=== PATIENT | male | born 1955 | race Caucasian/White ===

== ENCOUNTER 2018-04-09 09:17 | Emergency (ER) | payer SELFPAY ==
[~2018-04-09] VITALS: Ht 180.3 cm; Wt 138.0 kg
[2018-04-09] MEDS ORDERED: THIAMINE 100MG TABLET ONE (09:53)
[2018-04-09] MEDS ORDERED: THIAMINE 100MG TABLET PO ONE (10:00)
[2018-04-09 11:13] VITALS: BP 149/86
[2018-04-09] MEDS ORDERED: CHLORDIAZEPOXIDE 25 MG CAPSULE ONE (11:22)
[2018-04-09] MEDS ORDERED: CHLORDIAZEPOXIDE 25 MG CAPSULE PO ONE (11:30)
[2018-04-09] MEDS ORDERED: LORazepam 1MG TABLET ONE (11:51)
[2018-04-09] MEDS ORDERED: LORazepam 1MG TABLET PO ONE (12:00)
== END 2018-04-09 12:06 | disposition home or self-care (01) ==
LOC: ED 11:47
DX: F10.220 Alcohol dependence with intoxication, uncomplicated (principal)
CPT/HCPCS: 99284

== ENCOUNTER 2018-04-12 13:44 | Observation (INO) | payer OTHER ==
[~2018-04-12] VITALS: Ht 182.9 cm; Wt 130.0 kg
[2018-04-12 14:07] LABS: BASOPHILS # (AUTO) 0.07 x10^3/uL (0-0.1); BASOPHILS % (AUTO) 1 % (0-1); EOSINOPHILS # (AUTO) 0.16 x10^3/uL (0-0.4); EOSINOPHILS % (AUTO) 2 % (1-7); LYMPHOCYTES # (AUTO) 3.42 x10^3/uL (1-3.4); LYMPHOCYTES % (AUTO) 45 % (22-44); MD NO; MEAN CORPUSCULAR HEMOGLOBIN 31.4 pg (27.5-34.5); MEAN CORPUSCULAR HGB CONC 34.7 g/dL (33.2-36.2); MEAN CORPUSCULAR VOLUME 90.3 fL (81-97); MONOCYTES # (AUTO) 0.55 x10^3/uL (0.2-0.8); MONOCYTES % (AUTO) 7 % (2-9); NEUTROPHILS # (AUTO) 3.34 x10^3/uL (1.8-6.8); NEUTROPHILS % (AUTO) 44 % (42-75); PLATELET COUNT 228 x10^3/uL (130-400); RED BLOOD COUNT 5.21 x10^6/uL (4.38-5.82); RED CELL DISTRIBUTION WIDTH 14.3 % (9.4-14.8)
[2018-04-12 14:15] LABS: ALANINE AMINOTRANSFERASE 45 U/L (12-78); ALBUMIN 3.6 g/dL (3.4-5.0); ANION GAP 12 mmol/L (5-15); CALCIUM 8.2 mg/dL (8.5-10.1); CHLORIDE 107 mmol/L (98-107); CREATININE 1.18 mg/dL (0.7-1.3)
[2018-04-12 14:17] LABS: ALKALINE PHOSPHATASE 92 U/L (45-117); BILIRUBIN,TOTAL 0.8 mg/dL (0.2-1.0); SALICYLATE LEVEL < 1.7 mg/dL (2.8-20.0); TOTAL PROTEIN 7.4 g/dL (6.4-8.2)
[2018-04-12 14:18] LABS: ACETAMINOPHEN < 2 mcg/mL (10-30)
[2018-04-12 14:36] LABS: AMPHETAMINE SCREEN, URINE Negative (Negative); BARBITURATE SCREEN, URINE Negative (Negative); BENZODIAZEPINE SCREEN, URINE Positive (Negative); CANNABINOID SCREEN, URINE Negative (Negative); COCAINE SCREEN, URINE Negative (Negative); METHADONE SCREEN, URINE Negative (Negative); OPIATE SCREEN, URINE Negative (Negative)
[2018-04-12] MEDS ORDERED: CHLORDIAZEPOXIDE 25 MG CAPSULE ONE (14:48)
[2018-04-12] MEDS ORDERED: CHLORDIAZEPOXIDE 25 MG CAPSULE PO ONE (15:00)
[2018-04-12] MEDS ORDERED: LORazepam 2 MG/ML, 1ML IVPush ONE (19:00)
[2018-04-12] MEDS ORDERED: LORazepam 2 MG/ML, 1ML ONE (19:06)
[2018-04-12] MEDS ORDERED: MELO15TA24 PO (20:06)
[2018-04-12] MEDS ORDERED: BACL20TA PO (20:06)
[2018-04-12] MEDS ORDERED: BUPR150T13 PO (20:06)
[2018-04-12] MEDS ORDERED: CLON-275 PO (20:06)
[2018-04-12] MEDS ORDERED: LORA1TAB PO (20:06)
[2018-04-12] MEDS ORDERED: NALT50TA PO (20:06)
[2018-04-12] MEDS ORDERED: ONDANSETRON ODT 4 MG ONE (23:15)
[2018-04-13] MEDS ORDERED: DIPHENHYDRAMINE 50 MG CAPSULE PO PRN ×2 (00:30→03:30)
[2018-04-13] MEDS ORDERED: HALOPERIDOL 5 MG TABLET PO ONE (00:30)
[2018-04-13] MEDS ORDERED: HALOPERIDOL 5 MG TABLET ONE (00:53)
[2018-04-13] MEDS ORDERED: DIPHENHYDRAMINE 50 MG CAPSULE ONE (00:53)
[2018-04-13] MEDS ORDERED: ZIPRASIDONE 20 MG INJ IM ONE ×2 (03:24→03:30)
[2018-04-13] MEDS ORDERED: BENZTROPINE 1 MG TABLET PO PRN (03:30)
[2018-04-13] MEDS ORDERED: ONDANSETRON ODT 4 MG PO PRN (03:30)
[2018-04-13] MEDS ORDERED: ZIPRASIDONE 20 MG INJ IM PRN (03:30)
[2018-04-13] MEDS ORDERED: LORazepam 1MG TABLET ONE ×2 (07:18→13:32)
[2018-04-13] MEDS: LORazepam 1MG TABLET PO PRN ×4 (07:33→20:17)
[2018-04-13] MEDS ORDERED: ACETAMINOPHEN 325 MG TABLET PO PRN (08:00)
[2018-04-13] MEDS ORDERED: KETOROLAC 30 MG/1 ML ONE (08:02)
[2018-04-13] MEDS: KETOROLAC 30 MG/1 ML IM PRN ×3 (08:07→21:46)
[2018-04-13] MEDS: NALTREXONE HCL 50 MG TABLET PO SCH (10:47)
[2018-04-13] MEDS: BUPROPION SR 150 MG TABLET PO SCH (11:59)
[2018-04-13] MEDS: BACLOFEN 10 MG TABLET PO SCH ×3 (11:59→21:42)
[2018-04-13 20:00] VITALS: BP 174/99
[2018-04-13 21:33] VITALS: BP 162/77
[2018-04-13] MEDS: TEMAZEPAM 15 MG CAPSULE PO PRN (21:42)
[2018-04-14] MEDS: BUPROPION SR 150 MG TABLET PO SCH (08:31)
[2018-04-14] MEDS: NALTREXONE HCL 50 MG TABLET PO SCH (08:31)
[2018-04-14] MEDS: BACLOFEN 10 MG TABLET PO SCH ×3 (08:31→22:59)
[2018-04-14 09:01] VITALS: BP 164/81
[2018-04-14] MEDS: LORazepam 1MG TABLET PO PRN ×3 (09:43→20:01)
[2018-04-14] MEDS: KETOROLAC 30 MG/1 ML IM PRN ×3 (09:43→22:59)
[2018-04-14 20:00] VITALS: BP 147/76
[2018-04-14] MEDS: TEMAZEPAM 15 MG CAPSULE PO PRN (23:01)
[2018-04-15] MEDS: LORazepam 1MG TABLET PO PRN ×3 (02:20→17:09)
[2018-04-15 07:43] VITALS: BP 136/80
[2018-04-15] MEDS: BACLOFEN 10 MG TABLET PO SCH ×3 (08:34→21:20)
[2018-04-15] MEDS: KETOROLAC 30 MG/1 ML IM PRN ×3 (08:34→23:13)
[2018-04-15] MEDS: BUPROPION SR 150 MG TABLET PO SCH (08:34)
[2018-04-15] MEDS: NALTREXONE HCL 50 MG TABLET PO SCH (08:35)
[2018-04-15 19:26] VITALS: BP 137/84
[2018-04-16 08:44] VITALS: BP 157/77
[2018-04-16] MEDS: BUPROPION SR 150 MG TABLET PO SCH (08:49)
[2018-04-16] MEDS: NALTREXONE HCL 50 MG TABLET PO SCH (08:49)
[2018-04-16] MEDS: BACLOFEN 10 MG TABLET PO SCH ×3 (08:49→21:26)
[2018-04-16] MEDS: KETOROLAC 30 MG/1 ML IM PRN ×2 (09:09→17:20)
[2018-04-16] MEDS: LORazepam 1MG TABLET PO PRN ×2 (10:33→21:26)
[2018-04-16] MEDS: MINERA CRM, 60GM TP SCH ×2 (17:00→21:00)
[2018-04-16 21:33] VITALS: BP 153/90
[2018-04-17] MEDS: KETOROLAC 30 MG/1 ML IM PRN ×4 (00:43→21:01)
[2018-04-17 07:50] VITALS: BP 162/106
[2018-04-17] MEDS: MINERA CRM, 60GM TP SCH ×3 (08:46→21:00)
[2018-04-17] MEDS: BACLOFEN 10 MG TABLET PO SCH ×3 (08:46→21:00)
[2018-04-17] MEDS: NALTREXONE HCL 50 MG TABLET PO SCH (08:46)
[2018-04-17] MEDS: BUPROPION SR 150 MG TABLET PO SCH (08:46)
[2018-04-17] MEDS: LORazepam 1MG TABLET PO PRN ×4 (08:46→19:26)
[2018-04-17] MEDS: LIDOCAINE 4% CREAM 5GM TUBE TP PRN (18:03)
[2018-04-17 20:24] VITALS: BP 150/73
[2018-04-18 08:06] VITALS: BP 151/84
[2018-04-18] MEDS: LORazepam 1MG TABLET PO PRN ×2 (08:10→11:48)
[2018-04-18] MEDS: BUPROPION SR 150 MG TABLET PO SCH (08:10)
[2018-04-18] MEDS: BACLOFEN 10 MG TABLET PO SCH (08:10)
[2018-04-18] MEDS: LIDOCAINE 4% CREAM 5GM TUBE TP PRN (08:10)
[2018-04-18] MEDS: NALTREXONE HCL 50 MG TABLET PO SCH (08:10)
[2018-04-18] MEDS: MINERA CRM, 60GM TP SCH (08:12)
== END 2018-04-18 16:50 | disposition home or self-care (01) ==
LOC: ED 15:57 → EDIP 22:55 → 2N 04-13 14:05
PROVIDERS: ADMIT Internal Medicine; ATTEND Hospitalist
DX: R45.851 Suicidal ideations (principal); F10.229 Alcohol dependence with intoxication, unspecified; M48.061 Spinal stenosis, lumbar region without neurogenic claudication; F41.9 Anxiety disorder, unspecified; F32.9 Major depressive disorder, single episode, unspecified; G89.29 Other chronic pain
CPT/HCPCS: 36415; 71045; 80053; 80307; 80329; 85025; 93005; 96372; 96374; 99285; G0378; J1885; J2060; J3486; Q0162; G0480

== ENCOUNTER 2019-01-29 10:38 | Emergency (ER) | payer SELFPAY ==
[~2019-01-29] VITALS: Ht 172.7 cm; Wt 138.0 kg
[~2019-01-29 10:38] MED LIST: BACL20TA PO; BUPR150T13 PO; CLON-275 PO; LORA1TAB PO; MELO15TA24 PO; NALT50TA PO
--- NOTE | 2019-01-29 11:02 | NUR ---
PT. ARRIVES BY [facility] WITH C/O BEING [facility] AND MAKING STATEMENTS THAT HE "WANTS TO ." PT. STATES HE DOESN'T HAVE A PLAN OR PAST SI ATTEMPTS. PT. IS UNDRESSED AND HIS BELONGINGS SECURED IN THE CABINET. GARAGE DOORS ARE DOWN AND THERE IS A SITTER OUTSIDE OF THE ROOM. PT. IS NOT COOPERATING WITH MEDICAL STAFF AND ANSWERING QUESTIONS. PT. STATES, " I DON'T KNOW TO ALL QUESTIONS." PT. HAS STRONG ETOH ODOR. PT.'S HOB IS ELEVATED GREATER THAN 30 DEGREES. PT. WAS GIVEN A BLANKET FOR WARMTH AND THE SIDERAILS ARE UP X 2. PT.'S ROOM AIR SATS WERE 88%. PT. WAS PLACED ON 2 LITERS O2 PER NC WITH SATS AT 94% AND RESP EUPNEIC.
[2019-01-29] MEDS ORDERED: AMLO10TA8 PO (11:38)
[2019-01-29] MEDS ORDERED: ATOR20TA37 PO (11:38)
[2019-01-29] MEDS ORDERED: FOLI0.8T2 PO (11:38)
[2019-01-29] MEDS ORDERED: ESCI20TA PO (11:38)
[2019-01-29] MEDS ORDERED: THIA500T PO (11:38)
[2019-01-29] MEDS ORDERED: MULT-257 PO (11:38)
[2019-01-29] MEDS ORDERED: TAMS-11 PO (11:38)
[2019-01-29] MEDS ORDERED: OMEP40CA6 PO (11:38)
[2019-01-29] MEDS ORDERED: MELA1TAB6 PO (11:38)
[2019-01-29 12:14] LABS: BASOPHILS # (AUTO) 0.05 x10^3/uL (0-0.1); BASOPHILS % (AUTO) 1 % (0-1); EOSINOPHILS # (AUTO) 0.24 x10^3/uL (0-0.4); EOSINOPHILS % (AUTO) 4 % (1-7); LYMPHOCYTES # (AUTO) 2.76 x10^3/uL (1-3.4); LYMPHOCYTES % (AUTO) 42 % (22-44); MD NO; MEAN CORPUSCULAR HGB CONC 34.1 g/dL (33.2-36.2); MEAN CORPUSCULAR VOLUME 96.8 fL (81-97); MEAN PLATELET VOLUME 6.5 fL (7.4-10.4); MONOCYTES # (AUTO) 0.59 x10^3/uL (0.2-0.8); MONOCYTES % (AUTO) 9 % (2-9); NEUTROPHILS # (AUTO) 2.93 x10^3/uL (1.8-6.8); NEUTROPHILS % (AUTO) 45 % (42-75); PLATELET COUNT 244 x10^3/uL (130-400); RED BLOOD COUNT 4.85 x10^6/uL (4.38-5.82); RED CELL DISTRIBUTION WIDTH 14.2 % (9.4-14.8)
[2019-01-29 12:25] LABS: ALBUMIN 3.4 g/dL (3.4-5.0); ANION GAP 9 mmol/L (5-15); CALCIUM 8.1 mg/dL (8.5-10.1); CHLORIDE 106 mmol/L (98-107)
[2019-01-29 12:27] LABS: ALANINE AMINOTRANSFERASE 49 U/L (12-78); ALKALINE PHOSPHATASE 86 U/L (45-117); BILIRUBIN,TOTAL 0.5 mg/dL (0.2-1.0); CREATININE 0.99 mg/dL (0.7-1.3); TOTAL PROTEIN 7.3 g/dL (6.4-8.2)
[2019-01-29 12:35] LABS: ACETAMINOPHEN < 2 mcg/mL (10-30); SALICYLATE LEVEL < 1.7 mg/dL (2.8-20.0)
--- NOTE | 2019-01-29 13:19 | NUR ---
SITTER REMAINS OUTSIDE OF THE ROOM. PT. WAS AMBULATORY TO THE RESTROOM AND VOIDED ON THE FLOOR. NO FURTHER CONCERNS AT THIS TIME.
--- NOTE | 2019-01-29 15:08 | NUR ---
PT. PROVIDING A URINE SAMPLE THEN SAT HIMSELF ON THE GROUND. PT.'S URINE WAS SENT. PT. IS AMBULATORY IN THE JAMES AND STATING HE WANTS TO LEAVE SECURITY CALLED.
[2019-01-29] MEDS ORDERED: LORazepam 2 MG/ML, 1ML ONE (15:12)
[2019-01-29] MEDS: LORazepam 2 MG/ML, 1ML IM PRN (15:16)
--- NOTE | 2019-01-29 15:20 | NUR ---
PT. IS UNCOOPERATIVE STATING HE IS LEAVING. SECURITY IS AT THE BEDSIDE. PT. IS BELITTLING THE RN. PT. INSTRUCTED ON THE PLAN OF CARE. PT. WAS INSTRUCTED THAT IF HE POSES A DANGER TO HIMSELF, STAFF OR OTHER PATIENTS HE WILL BE RESTRAINED. PT. WAS INSTRUCTED TO NOT GET UP WITHOUT ASKING FOR ASSISTANCE. PT. CONTINUES TO BELITTLE THE RN AND DEFAME HER CHARACTER. PT. WAS MEDICATED ORDERED. SIDERAILS REMAIN UP X 2. SITTER OUTSIDE OF THE ROOM.
[2019-01-29 15:21] LABS: AMPHETAMINE SCREEN, URINE Negative (Negative); BARBITURATE SCREEN, URINE Negative (Negative); BENZODIAZEPINE SCREEN, URINE Positive (Negative); CANNABINOID SCREEN, URINE Negative (Negative); COCAINE SCREEN, URINE Negative (Negative); METHADONE SCREEN, URINE Negative (Negative); OPIATE SCREEN, URINE Negative (Negative)
--- NOTE | 2019-01-29 15:58 | NUR ---
PT. WAS MOVED TO ROOM 41. REPORT WAS GIVEN TO BORIS CASAS.
[2019-01-29] MEDS ORDERED: LORazepam 1MG TABLET PO ONE (16:00)
--- NOTE | 2019-01-29 16:22 | NUR ---
maria fernanda report from aggie. patient non cooperative and wants sedation. re breathylized patient and was high so told patient at this time sedation not good for him. he is angry about this. relayed to md. trying to keep patient in room, sitter outside.
[2019-01-29] MEDS ORDERED: LORazepam 1MG TABLET ONE ×2 (16:52→16:55)
--- NOTE | 2019-01-29 16:58 | NUR ---
patient requesting ativan frequently. ate dinner. he is not cooperative about getting or staying in bed. sitter. tv. will monitor. medicated as ordered.
--- NOTE | 2019-01-29 17:18 | NUR ---
patient resting quietly at this time
--- NOTE | 2019-01-29 19:25 | NUR ---
Pt states that if we let him go, he will "drink until I can't drink anymore. I don't know if that means i'm suicidal"
--- NOTE | 2019-01-29 21:08 | NUR ---
Pt sleeping at this time. Sitter outside room.
[2019-01-29] MEDS ORDERED: ACETAMINOPHEN 325 MG TABLET ONE (23:16)
[2019-01-29 23:25] VITALS: BP 177/80
--- NOTE | 2019-01-29 23:28 | NUR ---
Pt up to use BR. Requeted medication for pain and for detox. VSS. Pt medicated with tylenol.
[2019-01-29] MEDS ORDERED: ACETAMINOPHEN 325 MG TABLET PO ONE (23:30)
--- NOTE | 2019-01-30 00:52 | NUR ---
Report to tia cedeno
--- NOTE | 2019-01-30 00:53 | NUR ---
REPORT FROM ADINA CASAS. THIS RN TO ASSUME CARE OF PT. RESTING COMFORTABLY ON GURNEY WATCHING TV. REFUSES TO DO ANOTHER BREATHALYZER AT THIS TIME. ROLLER DOORS IN PLACE. SITTER IN HALLWAY.
--- NOTE | 2019-01-30 00:57 | NUR ---
PT STATES "IM FEELING A LITTLE ROUGH RIGHT NOW." STATES HE FEELS LIKE HE IS WITHDRAWING AND REQUESTING ATIVAN.
[2019-01-30] MEDS ORDERED: LORazepam 2 MG/ML, 1ML ONE (01:14)
[2019-01-30] MEDS: LORazepam 2 MG/ML, 1ML IM PRN (01:18)
--- NOTE | 2019-01-30 01:18 | NUR ---
GIVEN ATIVAN PER MAR AT THIS TIME.
[2019-01-30] MEDS ORDERED: LORazepam 1MG TABLET PO ONE (01:30)
--- NOTE | 2019-01-30 01:46 | NUR ---
PT PUKING AND D/T SYMPTOMS NOT SUBSIDING. MD AWARE AND THIS RN TO GIVE 2 MG PO ATIVAN.
[2019-01-30] MEDS ORDERED: LORazepam 1MG TABLET ONE (01:48)
--- NOTE | 2019-01-30 02:49 | NUR ---
PT. ASLEEP COMFORTABLY ON GURNEY. RR EVEN AND UNLABORED. NADN. ROLLER DOORS IN PLACE. SITTER IN HALLWAY.
--- NOTE | 2019-01-30 04:16 | NUR ---
PT ASLEEP COMFORTABLY ON GURNEY. RR EVEN AND UNLABORED. NADN. ROLLER DOORS IN PLACE. SITTER IN HALLWAY.
--- NOTE | 2019-01-30 04:47 | NUR ---
SOC CALLED FOR UPDATE. UDATED ON PT. TELEPSYCH TO BE INTIATED.
--- NOTE | 2019-01-30 05:21 | NUR ---
SOC COMPLETE. AWAITING FAXED RESULTS.
--- NOTE | 2019-01-30 05:42 | NUR ---
TELEPSYCH RECOMMENDS OUT PT TX AND NO CLINICAL INDICATION FOR L2K AT THIS TIME. AWARE. AWAITING FURTHER ORDERS.
--- NOTE | 2019-01-30 05:52 | NUR ---
PT TBDC. GIVEN ALL BELONGINGS BACK. AWAITING D/C INSTRUCTIONS.
== END 2019-01-30 06:00 | disposition home or self-care (01) ==
LOC: ED 13:16
DX: R45.851 Suicidal ideations (principal); F32.9 Major depressive disorder, single episode, unspecified; F10.220 Alcohol dependence with intoxication, uncomplicated
CPT/HCPCS: 36415; 80053; 80307; 80329; 85025; 96372; 99284; J2060; G0480

== ENCOUNTER 2021-04-19 07:53 | Inpatient (IN) | payer MEDICARE, OTHER ==
[~2021-04-19] VITALS: Ht 182.9 cm; Wt 146.0 kg
[~2021-04-19 07:53] MED LIST changes: +AMLO-211 PO; +ATOR20TA37 PO; +ESCI20TA8 PO; +FOLI0.8T5 PO; +MELA1TAB46 PO; +MULT-257 PO; +OMEP40CA8 PO; +TAMS-11 PO; +THIA500T PO
[2021-04-19] MEDS ORDERED: SODIUM CHLORIDE FLUSH 10ML SYR IVF ONE (08:30)
--- NOTE | 2021-04-19 08:35 | NUR ---
first contact with pt: Pt woke up this morning with L side pain and tingling. Hx of afib with pacer. C/o intermittent CP this AM. Nausea, SOB. A&Ox4. FSBG 146. EKG in triage. Pt postioned to comfort in bed. attached to monitors. vss. Thierry Calle to beside for evaluation.
[2021-04-19 08:59] LABS: BASOPHILS % (AUTO) 1 % (0-1); EOSINOPHILS % (AUTO) 2 % (1-7); LYMPHOCYTES % (AUTO) 20 % (22-44); MEAN CORPUSCULAR HGB CONC 35.2 g/dL (33.2-36.2); MEAN PLATELET VOLUME 6.9 fL (7.4-10.4); MONOCYTES % (AUTO) 10 % (2-9); NEUTROPHILS % (AUTO) 68 % (42-75); PLATELET COUNT 212 x10^3/uL (130-400); RED CELL DISTRIBUTION WIDTH 13.3 % (9.4-14.8)
[2021-04-19] MEDS ORDERED: ONDANSETRON 2MG/ML, 2ML IVPush ONE (09:00)
[2021-04-19] MEDS ORDERED: HYDROmorphone 1 MG/ML, 1ML INJ ONE (09:16)
[2021-04-19] MEDS ORDERED: ONDANSETRON 2MG/ML, 2ML ONE (09:16)
[2021-04-19 09:18] LABS: ALANINE AMINOTRANSFERASE 38 U/L (12-78); ALBUMIN 3.6 g/dL (3.4-5.0); ANION GAP 5 mmol/L (5-15); CALCIUM 9.3 mg/dL (8.5-10.1); CHLORIDE 103 mmol/L (98-107); CREATININE 1.15 mg/dL (0.7-1.3)
[2021-04-19 09:22] LABS: ALKALINE PHOSPHATASE 71 U/L (45-117); TROPONIN I < 0.015 ng/mL (0.000-0.045)
--- NOTE | 2021-04-19 09:23 | NUR ---
pt medicated per emar. vss. nadn
[2021-04-19] MEDS ORDERED: HYDROmorphone 1 MG/ML, 1ML INJ IV ONE (09:30)
--- NOTE | 2021-04-19 09:53 | NUR ---
pt back from ct. vss. haq.
--- NOTE | 2021-04-19 10:32 | NUR ---
PT RESTING IN BED. VSParesh. MAEGAN.
[2021-04-19] MEDS ORDERED: HYDROcodone/APAP 10/325 MG TABLET PO ONE (11:00)
[2021-04-19] MEDS ORDERED: HYDROcodone/APAP 10/325 MG TABLET ONE (11:15)
--- NOTE | 2021-04-19 11:18 | NUR ---
pt medicated per emar. vss.
[2021-04-19] MEDS ORDERED: OMNIPAQUE 350 MG/ML, 150 ML BOTTLE ONE (11:46)
[2021-04-19] MEDS ORDERED: CALC-43 PO (13:10)
[2021-04-19] MEDS ORDERED: ROSU20TA2 PO (13:10)
[2021-04-19] MEDS ORDERED: LOSA1TAB22 PO (13:10)
[2021-04-19] MEDS ORDERED: HYDR-3248 PO (13:10)
[2021-04-19] MEDS ORDERED: RIVA10TA2 PO (13:10)
--- NOTE | 2021-04-19 13:41 | NUR ---
REPORT CALLED TO DEANNA CASAS. PT TRANSFERED
[2021-04-19 14:00] VITALS: BP 131/76
[2021-04-19] MEDS ORDERED: BISACODYL 10 MG SUPP PR PRN (15:30)
[2021-04-19] MEDS ORDERED: DOCUSATE 100 MG CAPSULE PO PRN (15:30)
[2021-04-19] MEDS ORDERED: POLYETHYLENE GLYCOL 17 GM PACKET PO PRN (15:30)
[2021-04-19] MEDS ORDERED: HYDROcodone/APAP 5/325 TABLET PO PRN (15:30)
[2021-04-19] MEDS ORDERED: ONDANSETRON 2MG/ML, 2ML IVPush PRN (15:30)
[2021-04-19] MEDS ORDERED: ACETAMINOPHEN 325 MG TABLET PO PRN (15:30)
[2021-04-19 15:55] LABS: TROPONIN I < 0.015 ng/mL (0.000-0.045)
[2021-04-19 16:01] LABS: INTERNATIONAL NORMALIZED RATIO 1.27 (0.93-1.1); PROTHROMBIN TIME 13.4 Seconds (9.6-11.5)
[2021-04-19] MEDS: morphine SULFATE 10 MG/ML, 1ML IVPush PRN ×2 (18:55→23:25)
[2021-04-19 19:15] VITALS: BP 130/69
[2021-04-19] MEDS ORDERED: ATORVASTATIN 20 MG TABLET PO SCH (21:00)
[2021-04-19 21:28] LABS: TROPONIN I < 0.015 ng/mL (0.000-0.045)
[2021-04-20 01:45] VITALS: BP 126/67
[2021-04-20] MEDS: morphine SULFATE 10 MG/ML, 1ML IVPush PRN ×2 (04:06→10:36)
[2021-04-20 05:25] LABS: ALBUMIN 3.1 g/dL (3.4-5.0); ANION GAP 6 mmol/L (5-15); CALCIUM 8.5 mg/dL (8.5-10.1); CHLORIDE 102 mmol/L (98-107)
[2021-04-20 05:33] LABS: ALANINE AMINOTRANSFERASE 34 U/L (12-78); ALKALINE PHOSPHATASE 69 U/L (45-117); CHOL/HDL RATIO 3.6; CHOLESTEROL, TOTAL 170 mg/dL (140-239); CREATININE 1.05 mg/dL (0.7-1.3); HDL CHOL % 28 % (26-37); HDL CHOLESTEROL (DIRECT) 47 mg/dL (40-60); LDL CHOLESTEROL,CALCULATED 101 mg/dL (54-169); LDL/HDL RATIO 2.1 (0.5-3.0); TOTAL PROTEIN 7.1 g/dL (6.4-8.2); TRIGLYCERIDES 111 mg/dL (50-200); VLDL CHOLESTEROL 22 mg/dL (0-25)
[2021-04-20 05:34] LABS: BASOPHILS % (AUTO) 1 % (0-1); EOSINOPHILS % (AUTO) 4 % (1-7); LYMPHOCYTES % (AUTO) 36 % (22-44); MEAN CORPUSCULAR HEMOGLOBIN 35.2 pg (27.5-34.5); MEAN CORPUSCULAR HGB CONC 35.5 g/dL (33.2-36.2); MONOCYTES % (AUTO) 11 % (2-9); NEUTROPHILS % (AUTO) 49 % (42-75); PLATELET COUNT 170 x10^3/uL (130-400); RED BLOOD COUNT 4.47 x10^6/uL (4.38-5.82); RED CELL DISTRIBUTION WIDTH 13.1 % (9.4-14.8)
[2021-04-20 06:40] VITALS: BP 134/70
[2021-04-20] MEDS ORDERED: RIVAROXABAN 10 MG TABLET PO SCH (09:00)
== END 2021-04-20 14:04 | disposition home or self-care (01) | DRG 69 ==
LOC: ED 11:52 → EDIP 12:12 → 5SO 13:15
PROVIDERS: ADMIT Hospitalist; ATTEND Internal Medicine
DX: G45.9 Transient cerebral ischemic attack, unspecified (principal); E87.1 Hypo-osmolality and hyponatremia; Z68.41 Body mass index [BMI] 40.0-44.9, adult; R07.89 Other chest pain; E78.5 Hyperlipidemia, unspecified; E86.0 Dehydration; F32.9 Major depressive disorder, single episode, unspecified; G89.4 Chronic pain syndrome; I10 Essential (primary) hypertension; I48.91 Unspecified atrial fibrillation; K21.9 Gastro-esophageal reflux disease without esophagitis; N40.0 Benign prostatic hyperplasia without lower urinary tract symptoms; E66.9 Obesity, unspecified; Z79.899 Other long term (current) drug therapy; Z79.01 Long term (current) use of anticoagulants; Z86.718 Personal history of other venous thrombosis and embolism; Z95.0 Presence of cardiac pacemaker; I49.5 Sick sinus syndrome; R59.0 Localized enlarged lymph nodes; I49.9 Cardiac arrhythmia, unspecified
CPT/HCPCS: 36415; 70450; 70551; 71045; 71275; 74174; 80053; 80061; 80320; 82962; 83735; 84100; 84443; 84484; 85025; 85610; 93005; 96374; 96375; G0378; J1170; J2405; Q9967; G0480; J2270

== ENCOUNTER 2021-05-10 13:00 | Emergency (ER) | payer MEDICARE ==
[~2021-05-10] VITALS: Ht 182.9 cm; Wt 141.0 kg
[~2021-05-10 13:00] MED LIST changes: +CALC-43 PO; +HYDR-3248 PO; +LOSA1TAB22 PO; +RIVA10TA2 PO; +ROSU20TA2 PO
--- NOTE | 2021-05-10 13:38 | NUR ---
TASK RN: PT BIBA FROM FOR HYPOXIA 88% RA, AND NEW NEW LOSS OF TASTE AND SMELL X5 DAYS.
[2021-05-10] MEDS ORDERED: SODIUM CHLORIDE FLUSH 10ML SYR IVF ONE (14:00)
[2021-05-10] MEDS ORDERED: PLEASE ENTER HEIGHT AND WEIGHT MC SCH (14:00)
[2021-05-10 14:22] LABS: ALANINE AMINOTRANSFERASE 41 U/L (12-78); ALBUMIN 3.2 g/dL (3.4-5.0); ANION GAP 14 mmol/L (5-15); CALCIUM 8.8 mg/dL (8.5-10.1); CHLORIDE 103 mmol/L (98-107); CREATININE 1.54 mg/dL (0.7-1.3)
[2021-05-10 14:26] LABS: ALKALINE PHOSPHATASE 82 U/L (45-117); BILIRUBIN,TOTAL 0.9 mg/dL (0.2-1.0); TOTAL PROTEIN 7.6 g/dL (6.4-8.2); TROPONIN I < 0.015 ng/mL (0.000-0.045)
[2021-05-10 14:32] LABS: BASOPHILS % (AUTO) 1 % (0-1); EOSINOPHILS % (AUTO) 2 % (1-7); LYMPHOCYTES % (AUTO) 31 % (22-44); MEAN CORPUSCULAR HEMOGLOBIN 34.7 pg (27.5-34.5); MEAN CORPUSCULAR HGB CONC 35.1 g/dL (33.2-36.2); MEAN PLATELET VOLUME 7.4 fL (7.4-10.4); MONOCYTES % (AUTO) 10 % (2-9); NEUTROPHILS % (AUTO) 56 % (42-75); PLATELET COUNT 168 x10^3/uL (130-400); RED BLOOD COUNT 4.56 x10^6/uL (4.38-5.82); RED CELL DISTRIBUTION WIDTH 13.5 % (9.4-14.8)
[2021-05-10] MEDS ORDERED: LORazepam 1MG TABLET ONE (15:27)
[2021-05-10] MEDS ORDERED: ONDANSETRON ODT 4 MG ONE (15:27)
[2021-05-10] MEDS ORDERED: LORazepam 1MG TABLET PO ONE (15:30)
[2021-05-10] MEDS ORDERED: ONDANSETRON ODT 4 MG PO ONE (15:30)
--- NOTE | 2021-05-10 15:31 | NUR ---
PT RESTING IN BED WITH COMPLAINTS OF NAUSEA AND ANXIETY. MEDICATED FOR COMPLAINTS. VSS. ISSA.
[2021-05-10 16:19] VITALS: BP 158/62
--- NOTE | 2021-05-10 16:20 | NUR ---
PT PASS ABMUBLATION WITH SPO2 AT 92 WHEN WALKING.
--- NOTE | 2021-05-10 17:01 | NUR ---
Patient given discharge instructions and they have confirmed that they understand the instructions. Patient ambulatory with steady gait. NAD, all questions answered appropriately, denies additional needs at this time. No personal belongings left in room after discharge.
== END 2021-05-10 17:02 | disposition home or self-care (01) ==
LOC: ED 14:38
DX: U07.1 COVID-19 (principal); J06.9 Acute upper respiratory infection, unspecified; B34.9 Viral infection, unspecified; R06.02 Shortness of breath; I48.91 Unspecified atrial fibrillation
CPT/HCPCS: 36415; 71045; 80053; 83605; 83880; 84484; 85025; 87040; 93005; 99285; Q0162